=== PATIENT | female | born 1990 | race Hispanic/Latino ===

== ENCOUNTER 2021-06-01 02:00 | Emergency (ER) | payer BC, OTHER ==
[~2021-06-01] VITALS: Ht 160 cm; Wt 69.4 kg
[2021-06-01 02:09] VITALS: BP 119/73
[2021-06-01] MEDS ORDERED: GABAPENTIN 300 MG CAPSULE PO STA (03:22)
[2021-06-01] MEDS ORDERED: KETOROLAC 30MG VIAL (30MG/ML) IV ONE (03:30)
[2021-06-01 04:00] LABS: CREATININE 0.8 mg/dL (0.5-1.5); POTASSIUM 4.1 mmol/L (3.5-5.1)
[2021-06-01 04:02] LABS: ALBUMIN 4.2 g/dL (3.5-5.0); BILIRUBIN,TOTAL 0.6 mg/dL (0.2-1.0); TOTAL PROTEIN, SERUM 7.9 g/dL (6.0-8.3)
[2021-06-01] MEDS ORDERED: IOHEXOL-350 50ML VIAL IV ONE (05:03)
[2021-06-01] MEDS ORDERED: ACYC-138 PO (07:45)
[2021-06-01] MEDS ORDERED: PRED20TA3 PO (07:45)
[2021-06-01] MEDS ORDERED: SOLU-MEDROL 125MG VIAL IM SCH (08:00)
[2021-06-01 08:26] VITALS: BP 109/64
== END 2021-06-01 08:34 | disposition home or self-care (01) ==
LOC: EDH 02:00
DX: G51.0 Bell's palsy (principal)
CPT/HCPCS: 36415; 70470; 80053; 84703; 96372; 96374; 99285; J1885; J2930; Q9967

== ENCOUNTER 2023-09-28 11:23 | Emergency (ER) | payer BC, OTHER ==
[~2023-09-28] VITALS: Ht 157.5 cm; Wt 74.8 kg
[~2023-09-28 11:23] MED LIST: ACYC-138 PO; PRED20TA3 PO
[2023-09-28 11:28] VITALS: BP 120/56; PULSE 63; RESP 18
== END 2023-09-28 13:33 | disposition left against medical advice (07) ==
LOC: EDH 11:23
DX: R09.89 Other specified symptoms and signs involving the circulatory and respiratory systems (principal); Z53.21 Procedure and treatment not carried out due to patient leaving prior to being seen by health care provider
CPT/HCPCS: 99281